=== PATIENT | female | born 1990 | race Caucasian/White ===

== ENCOUNTER → 2020-04-09 | Outpatient (CLI) | payer OTHER ==
[2020-04-09 14:06] LABS: HCG, SERUM QUALITATIVE NEGATIVE (NEGATIVE)
== END ==
LOC: M LAB 12:07
PROVIDERS: ATTEND Nurse Practitioner Family
DX: F25.9 Schizoaffective disorder, unspecified (principal)

== ENCOUNTER 2020-04-17 12:58 | Emergency (ER) | payer OTHER ==
[~2020-04-17] VITALS: Ht 160 cm; Wt 55.5 kg
[2020-04-17 13:55] LABS: BASO % 0.5 % (0.0-1.0); EOS # 0.1 10^3/uL (0.0-0.5); EOS % 2.1 % (0.0-3.0); HEMATOCRIT 38.7 % (36.0-47.0); HEMOGLOBIN 12.2 g/dl (12.0-15.5); LYMPH # 1.3 10^3/uL (1.5-5.0); LYMPH % 29.5 % (24.0-44.0); MEAN CORPUSCULAR HEMOGLOBIN 28.2 pg (27.0-33.0); MEAN CORPUSCULAR HGB CONC 31.5 g/dl (32.0-36.5); MEAN CORPUSCULAR VOLUME 89.6 fl (80.0-96.0); MONO # 0.4 10^3/uL (0.0-0.8); MONO % 9.2 % (0.0-5.0); NEUTROPHILS # 2.5 10^3/uL (1.5-8.5); NEUTROPHILS % 58.2 % (36.0-66.0); PLATELET COUNT, AUTOMATED 172 10^3/uL (150-450); RED BLOOD COUNT 4.32 10^6/uL (4.00-5.40); WHITE BLOOD COUNT 4.3 10^3/uL (4.0-10.0)
[2020-04-17] MEDS ORDERED: RISP1SS PO (13:55)
[2020-04-17] MEDS ORDERED: LORA-674 PO (13:56)
[2020-04-17] MEDS ORDERED: VENTAER INH (13:58)
[2020-04-17 14:19] LABS: ALBUMIN 3.9 GM/DL (3.2-5.2); ALT/SGPT 27 U/L (12-78); BILIRUBIN,DIRECT 0.1 MG/DL (0.0-0.2); BILIRUBIN,TOTAL 0.5 MG/DL (0.2-1.0); BLOOD UREA NITROGEN 11 MG/DL (7-18); CALCIUM LEVEL 8.9 MG/DL (8.5-10.1); CARBON DIOXIDE LEVEL 26 MEQ/L (21-32); CHLORIDE LEVEL 110 MEQ/L (98-107); GLOMERULAR FILTRATION RATE > 60.0 (>60); GLUCOSE, FASTING 82 MG/DL (70-100); LIPASE 79 U/L (73-393); POTASSIUM SERUM 4.3 MEQ/L (3.5-5.1); SODIUM LEVEL 142 MEQ/L (136-145); TOTAL PROTEIN 7.1 GM/DL (6.4-8.2)
[2020-04-17 14:24] LABS: HCG, SERUM QUALITATIVE NEGATIVE (NEGATIVE)
--- NOTE | 2020-04-17 15:10 | REP ---
INDICATION: L flank pain COMPARISON: None. TECHNIQUE: CT Scan of the abdomen and pelvis was performed without intravenous contrast. Sagittal and coronal reconstruction images performed. FINDINGS: Lung bases: Unremarkable. There is a tiny calcified granuloma in the right lower lobe. Liver: Grossly unremarkable. Gallbladder: Unremarkable. Spleen: Grossly unremarkable.. Adrenals: Normal. Pancreas: Grossly unremarkable.. Kidneys: No hydronephrosis or nephrolithiasis. Ureters demonstrate no dilatation or calculus. Small and large bowel: Grossly unremarkable.. Free fluid: None. Abdominal aorta: No aneurysm. Adenopathy: None. Appendix: Not inflamed. Osseous structures: Unremarkable. Pelvis: No mass. No bladder calculus seen. IMPRESSION: Negative non-contrast CT abdomen and pelvis. <Electronically signed by Lance Acevedo > 04/17/20 [id number]
[2020-04-17] MEDS ORDERED: CIPR-249 PO (15:32)
[2020-04-17 15:50] VITALS: BP 112/68
== END 2020-04-17 15:55 | disposition home or self-care (01) ==
LOC: M ED 12:58
DX: N39.0 Urinary tract infection, site not specified (principal); J45.909 Unspecified asthma, uncomplicated; Z79.51 Long term (current) use of inhaled steroids; Z79.899 Other long term (current) drug therapy

== ENCOUNTER → 2020-04-26 | Outpatient (CLI) | payer OTHER ==
[~2020-04-26] MED LIST: CIPR-249 PO; LORA-674 PO; RISP1SS PO; VENTAER INH
[2020-04-26 15:32] LABS: EOS # 0.1 10^3/uL (0.0-0.5); EOS % 3.2 % (0.0-3.0); HEMATOCRIT 38.3 % (36.0-47.0); HEMOGLOBIN 12.4 g/dl (12.0-15.5); LYMPH # 1.3 10^3/uL (1.5-5.0); LYMPH % 32.6 % (24.0-44.0); MEAN CORPUSCULAR HEMOGLOBIN 29.5 pg (27.0-33.0); MEAN CORPUSCULAR HGB CONC 32.4 g/dl (32.0-36.5); MEAN CORPUSCULAR VOLUME 91.2 fl (80.0-96.0); MONO # 0.4 10^3/uL (0.0-0.8); MONO % 8.9 % (0.0-5.0); NEUTROPHILS # 2.2 10^3/uL (1.5-8.5); NEUTROPHILS % 54.1 % (36.0-66.0); PLATELET COUNT, AUTOMATED 210 10^3/uL (150-450); WHITE BLOOD COUNT 4.1 10^3/uL (4.0-10.0)
[2020-04-26 16:02] LABS: BLOOD UREA NITROGEN 11 MG/DL (7-18); CALCIUM LEVEL 8.7 MG/DL (8.5-10.1); CARBON DIOXIDE LEVEL 29 MEQ/L (21-32); CHLORIDE LEVEL 107 MEQ/L (98-107); CHOLESTEROL LEVEL 179 MG/DL (<200); CHOLESTEROL RISK RATIO 3.196 (<5); CREATININE FOR GFR 0.66 MG/DL (0.55-1.30); GLOMERULAR FILTRATION RATE > 60.0 (>60); GLUCOSE, FASTING 83 MG/DL (70-100); HDL CHOLESTEROL 56 MG/DL (>40); LDL CHOLESTEROL 110 MG/DL (<100); NON-HDL-C 123 MG/DL; POTASSIUM SERUM 4.3 MEQ/L (3.5-5.1); SODIUM LEVEL 140 MEQ/L (136-145); TRIGLYCERIDES LEVEL 63 MG/DL (<150); VALPROIC ACID (DEPAKOTE) 18.9 UG/ML (50.0-100.0)
== END ==
LOC: M LAB 14:39
PROVIDERS: ATTEND Nurse Practitioner Family
DX: F25.9 Schizoaffective disorder, unspecified (principal)

== ENCOUNTER → 2020-05-04 | Outpatient (REF) | payer OTHER ==
[2020-05-04 11:07] LABS: BASO % 0.5 % (0.0-1.0); EOS # 0.4 10^3/uL (0.0-0.5); EOS % 7.3 % (0.0-3.0); HEMATOCRIT 39.3 % (36.0-47.0); HEMOGLOBIN 12.4 g/dl (12.0-15.5); LYMPH # 1.6 10^3/uL (1.5-5.0); LYMPH % 27.9 % (24.0-44.0); MEAN CORPUSCULAR HEMOGLOBIN 28.6 pg (27.0-33.0); MEAN CORPUSCULAR HGB CONC 31.6 g/dl (32.0-36.5); MEAN CORPUSCULAR VOLUME 90.6 fl (80.0-96.0); MONO # 0.6 10^3/uL (0.0-0.8); MONO % 10.1 % (0.0-5.0); NEUTROPHILS # 3.1 10^3/uL (1.5-8.5); NEUTROPHILS % 53.9 % (36.0-66.0); PLATELET COUNT, AUTOMATED 203 10^3/uL (150-450); RED BLOOD COUNT 4.34 10^6/uL (4.00-5.40); WHITE BLOOD COUNT 5.7 10^3/uL (4.0-10.0)
[2020-05-04 12:42] LABS: ALBUMIN 3.8 GM/DL (3.2-5.2); ALT/SGPT 39 U/L (12-78); BILIRUBIN,TOTAL 0.6 MG/DL (0.2-1.0); BLOOD UREA NITROGEN 11 MG/DL (7-18); CALCIUM LEVEL 9.3 MG/DL (8.5-10.1); CARBON DIOXIDE LEVEL 29 MEQ/L (21-32); CHLORIDE LEVEL 106 MEQ/L (98-107); CHOLESTEROL LEVEL 189 MG/DL (<200); CHOLESTEROL RISK RATIO 2.779 (<5); CREATININE FOR GFR 0.66 MG/DL (0.55-1.30); FREE T4 1.01 NG/DL (0.76-1.46); GLOMERULAR FILTRATION RATE > 60.0 (>60); GLUCOSE, FASTING 84 MG/DL (70-100); HDL CHOLESTEROL 68 MG/DL (>40); LDL CHOLESTEROL 111 MG/DL (<100); NON-HDL-C 121 MG/DL; POTASSIUM SERUM 4.7 MEQ/L (3.5-5.1); SODIUM LEVEL 140 MEQ/L (136-145); TOTAL PROTEIN 7.2 GM/DL (6.4-8.2); TRIGLYCERIDES LEVEL 52 MG/DL (<150)
[2020-05-04 14:27] LABS: HCG, SERUM QUALITATIVE NEGATIVE (NEGATIVE)
== END ==
LOC: M SFHCPLAZ 10:06
PROVIDERS: ATTEND Physician Assistant Medical
DX: Z13.220 Encounter for screening for lipoid disorders (principal); Z12.11 Encounter for screening for malignant neoplasm of colon; Z86.39 Personal history of other endocrine, nutritional and metabolic disease

== ENCOUNTER → 2020-08-10 | Outpatient (REF) | payer OTHER ==
[2020-08-10 18:22] LABS: APPEARANCE, URINE CLEAR (CLEAR); BACTERIA, URINE AUTO 1+ (NEGATIVE); BILIRUBIN, URINE AUTO NEGATIVE (NEGATIVE); BLOOD, URINE BLOOD NEGATIVE (NEGATIVE); COLOR, URINE STRAW (YELLOW); GLUCOSE, URINE (UA) AUTO NEGATIVE (NEGATIVE); KETONE, URINE AUTO NEGATIVE (NEGATIVE); LEUKOCYTE ESTERASE, URINE AUTO TRACE (NEGATIVE); NITRITE, URINE AUTO NEGATIVE (NEGATIVE); PROTEIN, URINE AUTO NEGATIVE (NEGATIVE); RBC, URINE AUTO 0 /HPF (0-3); SPECIFIC GRAVITY URINE AUTO 1.003 (1.002-1.035); SQUAMOUS EPITHELIAL CELL UR AU 0 /HPF (0-6); UROBILINOGEN, URINE AUTO 0.2 mg/dL (0.0-2.0); WBC, URINE AUTO 1 /HPF (0-3)
== END ==
LOC: M SFHCPLAZ 16:39
PROVIDERS: ATTEND Physician Assistant Medical
DX: N30.00 Acute cystitis without hematuria (principal)

== ENCOUNTER → 2020-12-21 | Outpatient (REF) | payer OTHER | LOC: M SFHCLERA 17:16 | PROVIDERS: ATTEND Nurse Practitioner Family | DX: R30.0 Dysuria (principal) ==

== ENCOUNTER → 2020-12-23 | Outpatient (REF) | payer OTHER | LOC: M SFHCLERA 15:51 | PROVIDERS: ATTEND Nurse Practitioner Family | DX: R30.0 Dysuria (principal) ==

== ENCOUNTER → 2021-05-10 | Outpatient (REF) | payer OTHER ==
[2021-05-10 14:00] LABS: APPEARANCE, URINE HAZY (CLEAR); BACTERIA, URINE AUTO NEGATIVE (NEGATIVE); BILIRUBIN, URINE AUTO NEGATIVE (NEGATIVE); BLOOD, URINE BLOOD 2+ (NEGATIVE); COLOR, URINE YELLOW (YELLOW); GLUCOSE, URINE (UA) AUTO NEGATIVE (NEGATIVE); KETONE, URINE AUTO NEGATIVE (NEGATIVE); LEUKOCYTE ESTERASE, URINE AUTO NEGATIVE (NEGATIVE); MUCUS, URINE SMALL (NEGATIVE); NITRITE, URINE AUTO NEGATIVE (NEGATIVE); PROTEIN, URINE AUTO NEGATIVE (NEGATIVE); RBC, URINE AUTO 0 /HPF (0-3); SQUAMOUS EPITHELIAL CELL UR AU 3 /HPF (0-6); UROBILINOGEN, URINE AUTO 0.2 mg/dL (0.0-2.0); WBC, URINE AUTO 1 /HPF (0-3)
== END ==
LOC: M SFHCPLAZ 13:09
PROVIDERS: ATTEND Physician Assistant Medical
DX: R30.0 Dysuria (principal)

== ENCOUNTER → 2021-09-19 | Outpatient (CLI) | payer OTHER ==
[2021-09-19 13:39] LABS: APPEARANCE, URINE HAZY (CLEAR); BACTERIA, URINE AUTO NEGATIVE (NEGATIVE); BILIRUBIN, URINE AUTO NEGATIVE (NEGATIVE); BLOOD, URINE BLOOD 1+ (NEGATIVE); COLOR, URINE YELLOW (YELLOW); GLUCOSE, URINE (UA) AUTO NEGATIVE (NEGATIVE); KETONE, URINE AUTO NEGATIVE (NEGATIVE); LEUKOCYTE ESTERASE, URINE AUTO NEGATIVE (NEGATIVE); MUCUS, URINE SMALL (NEGATIVE); NITRITE, URINE AUTO NEGATIVE (NEGATIVE); PROTEIN, URINE AUTO NEGATIVE (NEGATIVE); RBC, URINE AUTO 2 /HPF (0-3); SPECIFIC GRAVITY URINE AUTO 1.023 (1.002-1.035); SQUAMOUS EPITHELIAL CELL UR AU 1 /HPF (0-6); UROBILINOGEN, URINE AUTO 0.2 mg/dL (0.0-2.0); WBC, URINE AUTO 3 /HPF (0-3)
[2021-09-19 14:03] LABS: BASO % 0.8 % (0.0-1.0); EOS # 0.1 10^3/uL (0.0-0.5); EOS % 1.9 % (0.0-3.0); HEMATOCRIT 43.4 % (36.0-47.0); HEMOGLOBIN 14.2 g/dl (12.0-15.5); LYMPH # 2.1 10^3/uL (1.5-5.0); LYMPH % 39.7 % (24.0-44.0); MEAN CORPUSCULAR HEMOGLOBIN 28.6 pg (27.0-33.0); MEAN CORPUSCULAR HGB CONC 32.7 g/dl (32.0-36.5); MEAN CORPUSCULAR VOLUME 87.5 fl (80.0-96.0); MONO # 0.5 10^3/uL (0.0-0.8); MONO % 9.3 % (2.0-8.0); NEUTROPHILS # 2.5 10^3/uL (1.5-8.5); NEUTROPHILS % 47.9 % (36.0-66.0); PLATELET COUNT, AUTOMATED 244 10^3/uL (150-450); RED BLOOD COUNT 4.96 10^6/uL (4.00-5.40); WHITE BLOOD COUNT 5.3 10^3/uL (4.0-10.0)
[2021-09-19 14:28] LABS: HEMOGLOBIN A1c 5.1 %
[2021-09-19 14:35] LABS: ALBUMIN 4.2 GM/DL (3.2-5.2); ALT/SGPT 33 U/L (12-78); BILIRUBIN,TOTAL 0.3 MG/DL (0.2-1.0); BLOOD UREA NITROGEN 9 MG/DL (7-18); CALCIUM LEVEL 9.6 MG/DL (8.5-10.1); CARBON DIOXIDE LEVEL 26 MEQ/L (21-32); CHLORIDE LEVEL 108 MEQ/L (98-107); CHOLESTEROL LEVEL 245 MG/DL (<200); CHOLESTEROL RISK RATIO 5.697 (<5); CREATININE FOR GFR 0.73 MG/DL (0.55-1.30); GLOMERULAR FILTRATION RATE > 60.0 (>60); GLUCOSE, FASTING 95 MG/DL (70-100); HDL CHOLESTEROL 43 MG/DL (>40); LDL CHOLESTEROL 179 MG/DL (<100); NON-HDL-C 202 MG/DL; POTASSIUM SERUM 4.4 MEQ/L (3.5-5.1); SODIUM LEVEL 139 MEQ/L (136-145); TOTAL PROTEIN 7.6 GM/DL (6.4-8.2); TRIGLYCERIDES LEVEL 114 MG/DL (<150)
== END ==
LOC: M PLALAB 10:53
PROVIDERS: ATTEND Physician Assistant Medical
DX: R30.0 Dysuria (principal)

== ENCOUNTER → 2021-10-11 | Outpatient (REF) | payer OTHER | LOC: M SFHCPLAZ 12:54 | PROVIDERS: ATTEND Physician Assistant | DX: R05.9 Cough, unspecified (principal) ==

== ENCOUNTER 2022-07-21 07:26 | Inpatient (IN) | payer OTHER ==
[~2022-07-21] VITALS: Ht 160 cm; Wt 60.3 kg
[2022-07-21] MEDS ORDERED: VITA500064 PO (07:42)
[2022-07-21] MEDS ORDERED: SERT50TA29 PO (07:42)
[2022-07-21] MEDS ORDERED: VALA1TAB5 PO (07:42)
[2022-07-21] MEDS ORDERED: CETI-24 PO (07:42)
[2022-07-21 08:21] LABS: HEMATOCRIT 41.2 % (36.0-47.0); HEMOGLOBIN 13.7 g/dl (12.0-15.5); MEAN CORPUSCULAR HEMOGLOBIN 28.8 pg (27.0-33.0); MEAN CORPUSCULAR HGB CONC 33.3 g/dl (32.0-36.5); MEAN CORPUSCULAR VOLUME 86.7 fl (80.0-96.0); PLATELET COUNT, AUTOMATED 274 10^3/uL (150-450); RED BLOOD COUNT 4.75 10^6/uL (4.00-5.40); WHITE BLOOD COUNT 5.3 10^3/uL (4.0-10.0)
[2022-07-21 08:46] LABS: ETHYL ALCOHOL (ETHANOL) < 0.003 % (0.000-0.010)
[2022-07-21 08:47] LABS: ACETAMINOPHEN LEVEL < 2.0 UG/ML (10.0-20.0)
[2022-07-21 08:48] LABS: ALBUMIN 4.1 G/DL (3.2-5.2); ALKALINE PHOSPHATASE 146 U/L (46-116); ALT/SGPT 49 U/L (7.0-40); AST/SGOT 33 U/L (<34); BILIRUBIN,DIRECT 0.2 MG/DL (<0.4); BILIRUBIN,TOTAL 0.7 MG/DL (0.3-1.2); BLOOD UREA NITROGEN 11 MG/DL (9-23); CALCIUM LEVEL 9.5 MG/DL (8.5-10.1); CARBON DIOXIDE LEVEL 22 MMOL/L (20-31); CHLORIDE LEVEL 107 MMOL/L (98-107); CREATININE FOR GFR 0.66 MG/DL (0.55-1.30); GLOMERULAR FILTRATION RATE > 60.0 (>60); GLUCOSE, FASTING 79 MG/DL (60-100); POTASSIUM SERUM 3.4 MMOL/L (3.5-5.1); SALICYLATE LEVEL < 3.0 MG/DL (<30); SODIUM LEVEL 138 MMOL/L (136-145); TOTAL PROTEIN 7.4 G/DL (5.7-8.2)
[2022-07-21 08:50] LABS: THYROID STIMULATING HORMONE 1.605 uIU/ML (0.55-4.78)
[2022-07-21 08:57] LABS: HCG, SERUM QUALITATIVE NEGATIVE (NEGATIVE)
[2022-07-21] MEDS ORDERED: NICOTINE 21MG/24HR 1 EA TRANSDERMAL TD SCH (09:00)
[2022-07-21 11:28] LABS: AMPHETAMINES LEVEL URINE NEGATIVE (NEGATIVE); BARBITURATES URINE NEGATIVE (NEGATIVE); BENZODIAZEPINES URINE NEGATIVE (NEGATIVE); CANNABINOIDS URINE NEGATIVE (NEGATIVE); COCAINE METABOLITE URINE NEGATIVE (NEGATIVE); METHADONE URINE NEGATIVE (NEGATIVE); OPIATES URINE NEGATIVE (NEGATIVE); PHENCYCLIDINE URINE NEGATIVE (NEGATIVE)
[2022-07-21] MEDS ORDERED: MAALOX 30 ML SUSP *UDC PO PRN ×2 (13:55→15:10)
[2022-07-21] MEDS ORDERED: MOM 30ML SUSPENSION UDC PO PRN ×2 (13:55→15:10)
[2022-07-21] MEDS ORDERED: IBUPROFEN 400MG TAB PO PRN (13:55)
[2022-07-21] MEDS ORDERED: OLANZapine ORAL DISINTEGRATING TAB 5MG PO PRN (13:55)
[2022-07-21] MEDS ORDERED: B-12100020 PO (16:04)
[2022-07-21] MEDS ORDERED: HOME MED LIST COMPLETE! XX SCH (16:10)
[2022-07-21 17:00] VITALS: BP 98/55
[2022-07-21] MEDS: traZODone 50 MG TAB PO PRN (21:28)
[2022-07-22 06:35] VITALS: BP 108/59
[2022-07-22] MEDS ORDERED: INFLUENZA QUADRIVALENT PF VACCINE 0.5ML SYRINGE IM.IMMUN ONE (09:00)
[2022-07-22] MEDS ORDERED: SERTRALINE HCL 50 MG TAB PO SCH (09:00)
[2022-07-22] MEDS ORDERED: ALBUTEROL 90 MCG/ACT 8GM HFA INHALER INH PRN (14:35)
[2022-07-22] MEDS: CYANOCOBALAMIN 500 MCG TAB PO SCH (15:00)
[2022-07-22] MEDS ORDERED: POTASSIUM CHLORIDE 10MEQ SR TABLET PO ONE (15:00)
[2022-07-22] MEDS: CETIRIZINE (ZyrTEC) 10 MG TAB PO SCH (15:01)
[2022-07-22] MEDS: valACYclovir HCL 500 MG TAB PO SCH (15:01)
[2022-07-22 16:42] VITALS: BP 108/67
[2022-07-22] MEDS: traZODone 50 MG TAB PO PRN (20:24)
[2022-07-22] MEDS ORDERED: ARIPiprazole 2 MG TAB PO SCH (21:00)
[2022-07-23 06:34] VITALS: BP 110/61
[2022-07-23 07:11] LABS: CHOLESTEROL RISK RATIO 4.15 (<5); HDL CHOLESTEROL 45.5 MG/DL (>40); LDL CHOLESTEROL 118.5 MG/DL (<100); NON-HDL-C 143.5 MG/DL
[2022-07-23] MEDS: CETIRIZINE (ZyrTEC) 10 MG TAB PO SCH (09:04)
[2022-07-23] MEDS: valACYclovir HCL 500 MG TAB PO SCH (09:04)
[2022-07-23] MEDS: SERTRALINE 100 MG TAB PO SCH (09:05)
[2022-07-23] MEDS: CYANOCOBALAMIN 500 MCG TAB PO SCH (09:05)
[2022-07-23] MEDS: OLANZapine 5 MG TAB PO SCH (20:29)
[2022-07-23] MEDS: traZODone 50 MG TAB PO PRN (20:29)
[2022-07-24 06:34] VITALS: BP 97/53
[2022-07-24] MEDS: SERTRALINE 100 MG TAB PO SCH (09:46)
[2022-07-24] MEDS: CYANOCOBALAMIN 500 MCG TAB PO SCH (09:47)
[2022-07-24] MEDS: valACYclovir HCL 500 MG TAB PO SCH (09:47)
[2022-07-24] MEDS: CETIRIZINE (ZyrTEC) 10 MG TAB PO SCH (09:47)
[2022-07-24 17:13] VITALS: BP 110/70
[2022-07-24] MEDS: OLANZapine 5 MG TAB PO SCH (21:10)
[2022-07-24] MEDS: traZODone 50 MG TAB PO PRN (21:10)
[2022-07-25 06:18] VITALS: BP 104/58
[2022-07-25] MEDS: SERTRALINE 100 MG TAB PO SCH (08:27)
[2022-07-25] MEDS: CETIRIZINE (ZyrTEC) 10 MG TAB PO SCH (08:27)
[2022-07-25] MEDS: CYANOCOBALAMIN 500 MCG TAB PO SCH (08:27)
[2022-07-25] MEDS: valACYclovir HCL 500 MG TAB PO SCH (08:27)
[2022-07-25 17:56] VITALS: BP 130/74
[2022-07-25] MEDS: OLANZapine 5 MG TAB PO SCH (20:42)
[2022-07-25] MEDS: traZODone 50 MG TAB PO PRN (20:53)
[2022-07-26 06:50] VITALS: BP 112/58
[2022-07-26] MEDS: CETIRIZINE (ZyrTEC) 10 MG TAB PO SCH (10:08)
[2022-07-26] MEDS: SERTRALINE 100 MG TAB PO SCH (10:08)
[2022-07-26] MEDS: valACYclovir HCL 500 MG TAB PO SCH (10:09)
[2022-07-26] MEDS: CYANOCOBALAMIN 500 MCG TAB PO SCH (10:09)
[2022-07-26 18:25] VITALS: BP 124/73
[2022-07-26] MEDS: traZODone 50 MG TAB PO PRN (22:10)
[2022-07-26] MEDS: OLANZapine 5 MG TAB PO SCH (22:10)
[2022-07-27 06:50] VITALS: BP 130/68
[2022-07-27] MEDS ORDERED: TRAZ-252 PO (09:40)
[2022-07-27] MEDS ORDERED: OLAN1TAB16 PO (09:40)
[2022-07-27] MEDS ORDERED: ZOLO100T PO (09:40)
[2022-07-27] MEDS: valACYclovir HCL 500 MG TAB PO SCH (10:03)
[2022-07-27] MEDS: CYANOCOBALAMIN 500 MCG TAB PO SCH (10:03)
[2022-07-27] MEDS: SERTRALINE 100 MG TAB PO SCH (10:04)
[2022-07-27] MEDS: CETIRIZINE (ZyrTEC) 10 MG TAB PO SCH (10:04)
== END 2022-07-27 12:11 | disposition home or self-care (01) | DRG 751 ==
LOC: M ED 07:26 → M ED INP 13:52 → M PSY 15:25
PROVIDERS: ADMIT Psychiatry & Neurology Psychiatry; ATTEND Psychiatry & Neurology Psychiatry
DX: F33.2 Major depressive disorder, recurrent severe without psychotic features (principal); U07.1 COVID-19; R45.851 Suicidal ideations; R44.0 Auditory hallucinations; R45.850 Homicidal ideations; Z91.14 Patient's other noncompliance with medication regimen; F60.89 Other specific personality disorders; F60.3 Borderline personality disorder; B00.9 Herpesviral infection, unspecified; E87.6 Hypokalemia; J45.909 Unspecified asthma, uncomplicated; I51.7 Cardiomegaly; Z79.899 Other long term (current) drug therapy; Z62.811 Personal history of psychological abuse in childhood

== ENCOUNTER 2022-11-29 20:20 | Emergency (ER) | payer OTHER ==
[~2022-11-29] VITALS: Ht 160 cm; Wt 58.0 kg
[~2022-11-29 20:20] MED LIST changes: +B-12100020 PO; +CETI-24 PO; +OLAN1TAB16 PO; +SERT50TA29 PO; +TRAZ-252 PO; +VALA1TAB5 PO; +VITA500065 PO; +ZOLO100T PO
[2022-11-29 20:21] VITALS: BP 136/63; TEMP 98; O2SAT 100
[2022-11-29 21:22] LABS: HEMATOCRIT 39.1 % (36.0-47.0); HEMOGLOBIN 13.1 g/dl (12.0-15.5); MEAN CORPUSCULAR HEMOGLOBIN 29.2 pg (27.0-33.0); MEAN CORPUSCULAR HGB CONC 33.5 g/dl (32.0-36.5); MEAN CORPUSCULAR VOLUME 87.3 fl (80.0-96.0); PLATELET COUNT, AUTOMATED 242 10^3/uL (150-450); RED BLOOD COUNT 4.48 10^6/uL (4.00-5.40); WHITE BLOOD COUNT 7.9 10^3/uL (4.0-10.0)
[2022-11-29 21:50] LABS: AMPHETAMINES LEVEL URINE NEGATIVE (NEGATIVE); BARBITURATES URINE NEGATIVE (NEGATIVE); COCAINE METABOLITE URINE NEGATIVE (NEGATIVE); METHADONE URINE NEGATIVE (NEGATIVE); OPIATES URINE NEGATIVE (NEGATIVE); PHENCYCLIDINE URINE NEGATIVE (NEGATIVE)
[2022-11-29 21:51] LABS: CANNABINOIDS URINE NEGATIVE (NEGATIVE)
[2022-11-29 21:52] LABS: BENZODIAZEPINES URINE NEGATIVE (NEGATIVE); ETHYL ALCOHOL (ETHANOL) < 0.003 % (0.000-0.010)
[2022-11-29 21:53] LABS: ACETAMINOPHEN LEVEL < 2.0 UG/ML (10.0-20.0)
[2022-11-29 21:54] LABS: ALBUMIN 4.4 G/DL (3.2-5.2); ALKALINE PHOSPHATASE 121 U/L (46-116); ALT/SGPT 22 U/L (7.0-40); AST/SGOT 16 U/L (<34); BILIRUBIN,DIRECT 0.2 MG/DL (<0.4); BILIRUBIN,TOTAL 0.6 MG/DL (0.3-1.2); BLOOD UREA NITROGEN 11 MG/DL (9-23); CALCIUM LEVEL 9.4 MG/DL (8.5-10.1); CARBON DIOXIDE LEVEL 23 MMOL/L (20-31); CHLORIDE LEVEL 108 MMOL/L (98-107); CREATININE FOR GFR 0.68 MG/DL (0.55-1.30); GLOMERULAR FILTRATION RATE > 60.0 (>60); GLUCOSE, FASTING 89 MG/DL (60-100); POTASSIUM SERUM 3.6 MMOL/L (3.5-5.1); SALICYLATE LEVEL < 3.0 MG/DL (<30); SODIUM LEVEL 141 MMOL/L (136-145); TOTAL PROTEIN 7.4 G/DL (5.7-8.2)
[2022-11-29 21:57] LABS: THYROID STIMULATING HORMONE 2.061 uIU/ML (0.55-4.78)
[2022-11-29 22:22] LABS: HCG, SERUM QUALITATIVE NEGATIVE (NEGATIVE)
[2022-11-29] MEDS ORDERED: ZOLO100T PO (22:26)
[2022-11-29] MEDS ORDERED: OLAN1TAB16 PO (22:26)
[2022-11-29] MEDS ORDERED: HOME MED LIST COMPLETE! XX SCH (22:30)
== END 2022-11-30 07:04 ==
LOC: M ED 20:20
DX: R45.851 Suicidal ideations (principal); F32.A Depression, unspecified; F41.9 Anxiety disorder, unspecified; F43.10 Post-traumatic stress disorder, unspecified; J45.909 Unspecified asthma, uncomplicated; Z88.8 Allergy status to other drugs, medicaments and biological substances; Z79.52 Long term (current) use of systemic steroids; Z79.899 Other long term (current) drug therapy

== ENCOUNTER 2023-01-11 11:01 | Inpatient (IN) | payer MEDICAID, OTHER ==
[~2023-01-11] VITALS: Ht 160 cm; Wt 22.7 kg
[~2023-01-11 11:01] MED LIST changes: +LORA-1041 PO; -LORA-674 PO
[2023-01-11] MEDS ORDERED: LEXA5TAB13 PO (11:30)
[2023-01-11 12:15] LABS: HEMATOCRIT 38.5 % (36.0-47.0); HEMOGLOBIN 12.8 g/dl (12.0-15.5); MEAN CORPUSCULAR HEMOGLOBIN 29.6 pg (27.0-33.0); MEAN CORPUSCULAR HGB CONC 33.2 g/dl (32.0-36.5); MEAN CORPUSCULAR VOLUME 89.1 fl (80.0-96.0); PLATELET COUNT, AUTOMATED 242 10^3/uL (150-450); RED BLOOD COUNT 4.32 10^6/uL (4.00-5.40); WHITE BLOOD COUNT 6.8 10^3/uL (4.0-10.0)
[2023-01-11 12:36] LABS: ETHYL ALCOHOL (ETHANOL) < 0.003 % (0.000-0.010)
[2023-01-11 12:37] LABS: ACETAMINOPHEN LEVEL < 2.0 UG/ML (10.0-20.0)
[2023-01-11 12:38] LABS: ALBUMIN 3.9 G/DL (3.2-5.2); ALKALINE PHOSPHATASE 131 U/L (46-116); ALT/SGPT 24 U/L (7.0-40); AST/SGOT 20 U/L (<34); BILIRUBIN,DIRECT 0.2 MG/DL (<0.4); BILIRUBIN,TOTAL 0.5 MG/DL (0.3-1.2); BLOOD UREA NITROGEN 14 MG/DL (9-23); CALCIUM LEVEL 9.3 MG/DL (8.5-10.1); CARBON DIOXIDE LEVEL 24 MMOL/L (20-31); CHLORIDE LEVEL 107 MMOL/L (98-107); CREATININE FOR GFR 0.66 MG/DL (0.55-1.30); GLOMERULAR FILTRATION RATE > 60.0 (>60); GLUCOSE, FASTING 83 MG/DL (60-100); SALICYLATE LEVEL < 3.0 MG/DL (<30); SODIUM LEVEL 140 MMOL/L (136-145); TOTAL PROTEIN 6.8 G/DL (5.7-8.2)
[2023-01-11 12:59] LABS: AMPHETAMINES LEVEL URINE NEGATIVE (NEGATIVE)
[2023-01-11 13:00] LABS: BARBITURATES URINE NEGATIVE (NEGATIVE); BENZODIAZEPINES URINE NEGATIVE (NEGATIVE); CANNABINOIDS URINE NEGATIVE (NEGATIVE); COCAINE METABOLITE URINE NEGATIVE (NEGATIVE); METHADONE URINE NEGATIVE (NEGATIVE); OPIATES URINE NEGATIVE (NEGATIVE); PHENCYCLIDINE URINE NEGATIVE (NEGATIVE)
[2023-01-11] MEDS ORDERED: OLAN7.5T8 PO (19:48)
[2023-01-11] MEDS ORDERED: HOME MED LIST COMPLETE! XX SCH (19:55)
[2023-01-11] MEDS ORDERED: OLANZapine 2.5MG TABLET PO ONE (21:40)
[2023-01-12] MEDS: OLANZapine 2.5MG TABLET PO SCH (20:25)
[2023-01-13] MEDS: ESCITALOPRAM OXALATE 5MG TABLET (LEXAPRO) PO SCH (11:03)
[2023-01-13] MEDS: CETIRIZINE (ZyrTEC) 10 MG TAB PO SCH (11:04)
[2023-01-13] MEDS ORDERED: RAMELTEON 8 MG TAB (ROZEREM) PO PRN (20:00)
[2023-01-13] MEDS ORDERED: diphenhydrAMINE 25MG CAP PO PRN (20:00)
[2023-01-13] MEDS: OLANZapine 2.5MG TABLET PO SCH (20:28)
[2023-01-14] MEDS: CETIRIZINE (ZyrTEC) 10 MG TAB PO SCH (09:50)
[2023-01-14] MEDS: ESCITALOPRAM OXALATE 5MG TABLET (LEXAPRO) PO SCH (09:50)
[2023-01-14] MEDS ORDERED: IBUPROFEN 400MG TAB PO PRN (14:25)
[2023-01-14] MEDS ORDERED: traZODone 50 MG TAB PO PRN (14:25)
[2023-01-14] MEDS ORDERED: diphenhydrAMINE 25MG CAP PO PRN (14:25)
[2023-01-14] MEDS ORDERED: MAALOX 30 ML SUSP *UDC PO PRN (14:25)
[2023-01-14] MEDS ORDERED: ACETAMINOPHEN TAB 650MG DOSE (2X325MG) PO PRN (14:25)
[2023-01-14] MEDS ORDERED: OLANZapine ORAL DISINTEGRATING TAB 5MG PO PRN (14:25)
[2023-01-14] MEDS ORDERED: MOM 30ML SUSPENSION UDC PO PRN (14:25)
[2023-01-14 15:51] VITALS: BP 90/62; TEMP 99.3; O2SAT 98
[2023-01-14 18:55] VITALS: BP 110/70
[2023-01-14] MEDS: OLANZapine 2.5MG TABLET PO SCH (21:11)
[2023-01-15 06:42] VITALS: BP 121/63; TEMP 98.4; O2SAT 98
[2023-01-15] MEDS ORDERED: ALBUTEROL 90 MCG/ACT 8GM HFA INHALER INH PRN (09:00)
[2023-01-15] MEDS: CETIRIZINE (ZyrTEC) 10 MG TAB PO SCH (11:36)
[2023-01-15] MEDS: ESCITALOPRAM OXALATE 5MG TABLET (LEXAPRO) PO SCH (11:37)
[2023-01-15 16:27] VITALS: BP 155/96; TEMP 97.1; O2SAT 99
[2023-01-15 16:39] VITALS: BP 113/73; TEMP 97.1; O2SAT 100
[2023-01-15] MEDS: DIVALPROEX 500MG *ER* TAB PO SCH (20:13)
[2023-01-15] MEDS: OLANZapine 2.5MG TABLET PO SCH (20:13)
[2023-01-16 06:26] VITALS: BP 98/53; TEMP 98.9; O2SAT 100
[2023-01-16] MEDS: CETIRIZINE (ZyrTEC) 10 MG TAB PO SCH (09:01)
[2023-01-16] MEDS: ESCITALOPRAM OXALATE 5MG TABLET (LEXAPRO) PO SCH (09:01)
[2023-01-16 16:28] VITALS: BP 110/72; TEMP 98.9; O2SAT 100
[2023-01-16] MEDS: OLANZapine 2.5MG TABLET PO SCH (20:16)
[2023-01-16] MEDS: DIVALPROEX 500MG *ER* TAB PO SCH (20:16)
[2023-01-17 06:11] VITALS: BP 128/72; TEMP 98.8; O2SAT 99
[2023-01-17] MEDS: CETIRIZINE (ZyrTEC) 10 MG TAB PO SCH (08:31)
[2023-01-17] MEDS: ESCITALOPRAM OXALATE 5MG TABLET (LEXAPRO) PO SCH (08:31)
[2023-01-17] MEDS ORDERED: DEPA500T2 PO (11:18)
[2023-01-17] MEDS ORDERED: RAME8TAB2 PO (11:18)
[2023-01-17] MEDS ORDERED: OLAN7.5T8 PO (11:18)
[2023-01-17] MEDS ORDERED: LEXA1TAB PO (11:18)
== END 2023-01-17 11:57 | disposition home or self-care (01) | DRG 755 ==
LOC: M ED 11:01 → M ED INP 01-14 14:25 → M PSY 01-14 15:45
PROVIDERS: ADMIT Student in an Organized Health Care Education/Training Program; ATTEND Student in an Organized Health Care Education/Training Program
DX: F43.10 Post-traumatic stress disorder, unspecified (principal); R45.850 Homicidal ideations; R45.851 Suicidal ideations; F60.3 Borderline personality disorder; F63.9 Impulse disorder, unspecified; Z88.8 Allergy status to other drugs, medicaments and biological substances; Z79.899 Other long term (current) drug therapy; J45.909 Unspecified asthma, uncomplicated

== ENCOUNTER 2023-06-28 13:51 | Inpatient (IN) | payer OTHER, MEDICAID ==
[~2023-06-28] VITALS: Ht 160 cm; Wt 60.7 kg
[~2023-06-28 13:51] MED LIST changes: +ACET1TAB55 PO; +DEPA500T2 PO; +LEXA1TAB PO; +LEXA5TAB13 PO; +OLAN7.5T8 PO; +RAME8TAB2 PO; +VILO200C PO; +VRAY3CAP PO
[2023-06-28 14:51] LABS: HEMATOCRIT 38.9 % (36.0-47.0); MEAN CORPUSCULAR HEMOGLOBIN 29.3 pg (27.0-33.0); MEAN CORPUSCULAR HGB CONC 33.4 g/dl (32.0-36.5); MEAN CORPUSCULAR VOLUME 87.8 fl (80.0-96.0); PLATELET COUNT, AUTOMATED 255 10^3/uL (150-450); RED BLOOD COUNT 4.43 10^6/uL (4.00-5.40); WHITE BLOOD COUNT 6.4 10^3/uL (4.0-10.0)
[2023-06-28 15:14] LABS: AMPHETAMINES LEVEL URINE NEGATIVE (NEGATIVE)
[2023-06-28 15:15] LABS: BARBITURATES URINE NEGATIVE (NEGATIVE); BENZODIAZEPINES URINE NEGATIVE (NEGATIVE); CANNABINOIDS URINE NEGATIVE (NEGATIVE); COCAINE METABOLITE URINE NEGATIVE (NEGATIVE); METHADONE URINE NEGATIVE (NEGATIVE); OPIATES URINE NEGATIVE (NEGATIVE); PHENCYCLIDINE URINE NEGATIVE (NEGATIVE)
[2023-06-28 15:17] LABS: ETHYL ALCOHOL (ETHANOL) < 0.003 % (0.000-0.010)
[2023-06-28 15:19] LABS: ALBUMIN 4.1 G/DL (3.2-5.2); ALKALINE PHOSPHATASE 122 U/L (46-116); ALT/SGPT 36 U/L (7.0-40); AST/SGOT 21 U/L (<34); BILIRUBIN,DIRECT 0.2 MG/DL (<0.4); BILIRUBIN,TOTAL 0.7 MG/DL (0.3-1.2); BLOOD UREA NITROGEN 14 MG/DL (9-23); CALCIUM LEVEL 9.2 MG/DL (8.5-10.1); CARBON DIOXIDE LEVEL 23 MMOL/L (20-31); CHLORIDE LEVEL 111 MMOL/L (98-107); CREATININE FOR GFR 0.67 MG/DL (0.55-1.30); GLOMERULAR FILTRATION RATE > 60.0 (>60); GLUCOSE, FASTING 73 MG/DL (60-100); POTASSIUM SERUM 3.3 MMOL/L (3.5-5.1); SALICYLATE LEVEL < 3.0 MG/DL (<30); SODIUM LEVEL 140 MMOL/L (136-145)
[2023-06-28 15:20] LABS: HCG, SERUM QUALITATIVE NEGATIVE (NEGATIVE)
[2023-06-28 15:21] LABS: THYROID STIMULATING HORMONE 0.898 uIU/ML (0.55-4.78)
[2023-06-28] MEDS ORDERED: OXCA300T14 PO (16:52)
[2023-06-28] MEDS ORDERED: LEXA1TAB PO (16:52)
[2023-06-28] MEDS ORDERED: HOME MED LIST COMPLETE! XX SCH (17:05)
[2023-06-28] MEDS ORDERED: MOM 30ML SUSPENSION UDC PO PRN (17:15)
[2023-06-28] MEDS ORDERED: traZODone 50 MG TAB PO PRN (17:15)
[2023-06-28] MEDS ORDERED: ACETAMINOPHEN TAB 650MG DOSE (2X325MG) PO PRN (17:15)
[2023-06-28] MEDS ORDERED: diphenhydrAMINE 25MG CAP PO PRN (17:15)
[2023-06-28 20:45] VITALS: BP 98/58; TEMP 98.2; O2SAT 97
[2023-06-28] MEDS: ESCITALOPRAM OXALATE 10 MG TAB (LEXAPRO) PO SCH (22:20)
[2023-06-29 06:45] VITALS: BP 98/58; TEMP 98.9; O2SAT 97
[2023-06-29] MEDS: CETIRIZINE (ZyrTEC) 10 MG TAB PO SCH (09:24)
[2023-06-29] MEDS: OXcarbazepine 300 MG TAB PO SCH ×2 (09:24→20:08)
[2023-06-29] MEDS: IBUPROFEN 400MG TAB PO PRN (09:46)
[2023-06-29] MEDS: POTASSIUM CHLORIDE 10MEQ SR TABLET PO ONE (11:36)
[2023-06-29 16:18] VITALS: BP 108/64; TEMP 98.4; O2SAT 100
[2023-06-29] MEDS: ALBUTEROL SULFATE 2.5MG/0.5ML INH NEB SOLN INH PRN (19:38)
[2023-06-29] MEDS: SERTRALINE HCL 50 MG TAB PO SCH (20:08)
[2023-06-30 06:39] VITALS: BP 97/62; TEMP 98.1; O2SAT 95
[2023-06-30 16:24] VITALS: BP 100/58; TEMP 98.2; O2SAT 97
[2023-06-30] MEDS: MAALOX 30 ML SUSP *UDC PO PRN (19:48)
[2023-06-30 19:53] VITALS: BP 120/71
[2023-06-30] MEDS: PRAZOSIN 1 MG CAP PO SCH (20:13)
[2023-07-01 06:32] VITALS: BP 93/55; TEMP 98; O2SAT 97
[2023-07-01] MEDS: AUGMENTIN 875 MG TAB PO SCH (16:44)
[2023-07-01] MEDS: LACTOBACILLUS ACIDOPHILUS CAP (BACID) PO SCH (17:11)
[2023-07-01 17:43] VITALS: BP 112/72; TEMP 98.1; O2SAT 96
[2023-07-01 19:47] VITALS: BP 99/58
[2023-07-01 20:09] VITALS: BP 99/58
[2023-07-01] MEDS: RAMELTEON 8 MG TAB (ROZEREM) PO ONE (20:45)
[2023-07-02 06:12] VITALS: BP 93/56; TEMP 97.6; O2SAT 99
[2023-07-02] MEDS ORDERED: OXCA300T14 PO (08:19)
[2023-07-02] MEDS ORDERED: SERT50TA29 PO (08:19)
[2023-07-02] MEDS ORDERED: AMOX875T2 PO (08:19)
[2023-07-02 09:38] VITALS: BP 121/68
== END 2023-07-02 11:20 | disposition home or self-care (01) | DRG 751 ==
LOC: M ED 13:51 → M ED INP 17:12 → M PSY 20:38
PROVIDERS: ADMIT Student in an Organized Health Care Education/Training Program; ATTEND Student in an Organized Health Care Education/Training Program
DX: F32.3 Major depressive disorder, single episode, severe with psychotic features (principal); R45.850 Homicidal ideations; R45.851 Suicidal ideations; F60.3 Borderline personality disorder; F60.89 Other specific personality disorders; Z88.8 Allergy status to other drugs, medicaments and biological substances; J45.909 Unspecified asthma, uncomplicated; F41.9 Anxiety disorder, unspecified; F43.10 Post-traumatic stress disorder, unspecified; E87.6 Hypokalemia; R74.8 Abnormal levels of other serum enzymes; Z79.899 Other long term (current) drug therapy; R45.4 Irritability and anger; H92.03 Otalgia, bilateral

== ENCOUNTER 2024-11-15 15:18 | Inpatient (IN) | payer MEDICARE, MEDICAID ==
[~2024-11-15] VITALS: Ht 160 cm; Wt 54.0 kg
[~2024-11-15 15:18] MED LIST changes: +AMOX875T2 PO; +OLAN7.5T38 PO; -OLAN7.5T8 PO; +OXCA300T14 PO
[2024-11-15 16:23] LABS: PLATELET COUNT, AUTOMATED 212 10^3/uL (150-450)
[2024-11-15 16:39] LABS: AMPHETAMINES LEVEL URINE NEGATIVE (NEGATIVE); BARBITURATES URINE NEGATIVE (NEGATIVE); BENZODIAZEPINES URINE NEGATIVE (NEGATIVE); CANNABINOIDS URINE NEGATIVE (NEGATIVE); COCAINE METABOLITE URINE NEGATIVE (NEGATIVE); METHADONE URINE NEGATIVE (NEGATIVE); OPIATES URINE NEGATIVE (NEGATIVE); PHENCYCLIDINE URINE NEGATIVE (NEGATIVE)
[2024-11-15 16:42] LABS: ETHYL ALCOHOL (ETHANOL) 0.003 % (0.000-0.010); HCG, SERUM QUALITATIVE NEGATIVE (NEGATIVE)
[2024-11-15 16:43] LABS: SALICYLATE LEVEL < 3.0 MG/DL (<30)
[2024-11-15 16:44] LABS: ALT/SGPT 24 U/L (7.0-40); AST/SGOT 23 U/L (<34); CALCIUM LEVEL 9.4 MG/DL (8.5-10.1); CARBON DIOXIDE LEVEL 23 MMOL/L (20-31); CHLORIDE LEVEL 109 MMOL/L (98-107); CREATININE FOR GFR 0.77 MG/DL (0.55-1.30); GLOMERULAR FILTRATION RATE > 90.0 (>60); POTASSIUM SERUM 3.9 MMOL/L (3.5-5.1); SODIUM LEVEL 143 MMOL/L (136-145)
[2024-11-15] MEDS ORDERED: MAALOX 30 ML SUSP *UDC PO PRN (18:20)
[2024-11-15] MEDS ORDERED: MOM 30 ML SUSPENSION UDC PO PRN (18:20)
[2024-11-15] MEDS ORDERED: IBUPROFEN 400 MG TAB PO PRN (18:20)
[2024-11-15 20:55] VITALS: BP 120/76; TEMP 97.4; O2SAT 100
[2024-11-15] MEDS: traZODone 50 MG TAB PO PRN (21:20)
[2024-11-15 22:03] VITALS: BP 120/76; TEMP 97.4; O2SAT 100
[2024-11-15] MEDS ORDERED: ALBU8.5H INH (22:23)
[2024-11-15] MEDS ORDERED: ACET1TAB55 PO (22:23)
[2024-11-15] MEDS ORDERED: OXCA300T14 PO (22:23)
[2024-11-15] MEDS ORDERED: RAME8TAB2 PO (22:23)
[2024-11-15] MEDS ORDERED: RIME75TA SL (22:23)
[2024-11-15] MEDS ORDERED: SERT25TA85 PO (22:23)
[2024-11-15] MEDS ORDERED: HOME MED LIST COMPLETE! XX SCH (22:25)
[2024-11-16 06:37] VITALS: BP 82/65; TEMP 98; O2SAT 99
[2024-11-16] MEDS ORDERED: ALBUTEROL 90 MCG/ACT 8 GM HFA INHALER INH PRN (07:50)
[2024-11-16] MEDS: SERTRALINE 100 MG TAB PO SCH (08:51)
[2024-11-16] MEDS: CETIRIZINE 10 MG TAB PO SCH (08:51)
[2024-11-16] MEDS ORDERED: SERTRALINE HCL 25 MG TABLET PO SCH (09:00)
[2024-11-16 16:16] VITALS: BP 12/62; TEMP 98.2; O2SAT 100
[2024-11-16] MEDS: RAMELTEON 8 MG TAB PO SCH (20:10)
[2024-11-16] MEDS: ACETAMINOPHEN 325 MG TAB PO PRN (20:34)
[2024-11-17 06:28] VITALS: BP 100/55; TEMP 97.4; O2SAT 98
[2024-11-17] MEDS: CARBAMIDE PEROXIDE 6.5% OTIC SOLN 15 ML AU SCH (11:41)
[2024-11-17 15:13] VITALS: BP 100/55; TEMP 98.1; O2SAT 100
[2024-11-18 06:24] VITALS: BP 98/60; TEMP 98.2; O2SAT 100
[2024-11-18] MEDS ORDERED: OXCA150T21 PO (07:55)
[2024-11-18] MEDS ORDERED: OLAN2.5T53 PO (07:55)
== END 2024-11-18 10:05 | disposition home or self-care (01) | DRG 885 ==
LOC: M ED 15:18 → M ED INP 18:19 → M PSY 20:43
PROVIDERS: ADMIT Psychiatry & Neurology Neurology; ATTEND Psychiatry & Neurology Neurology
DX: F32.3 Major depressive disorder, single episode, severe with psychotic features (principal); F31.9 Bipolar disorder, unspecified; Z88.8 Allergy status to other drugs, medicaments and biological substances; Z79.899 Other long term (current) drug therapy; G47.00 Insomnia, unspecified; F41.1 Generalized anxiety disorder; J45.909 Unspecified asthma, uncomplicated; G43.909 Migraine, unspecified, not intractable, without status migrainosus